=== PATIENT | male | born 1945 | race Caucasian/White ===

== ENCOUNTER 2017-05-20 01:46 | Day surgery (SDC) | payer MEDICARE, OTHER ==
[~2017-05-20] VITALS: Ht 175.3 cm; Wt 70.5 kg
[2017-05-20] VITALS (10 sets, daily range): BP systolic 147–182; BP diastolic 71–104; PULSE 83–106; RESP 16–21; O2SAT 93–96
[~2017-05-20 01:46] MED LIST: ASPI-628 PO; FLUT12AE10 IH; HYDR25TA4 PO; LIP40 PO
--- NOTE | 2017-05-20 11:08 | NUR ---
MIKHAIL ADMIT 72 YR OLD MALE ADMITTED TO [facility] FOR ANGIO TODAY AT 1000. IVS STARTED, LABS SENT, AND QUESTIONS ANSWERED. DR VILLEGAS NOTIFIED OF PT'S ADMIT.
[2017-05-20 11:16] LABS: BASOPHILS % (AUTO) 0.7 % (0-3); EOSINOPHILS % (AUTO) 0.7 % (0-5); MONOCYTES % (AUTO) 12.3 % (4-12); Mean Corpuscular Hemoglobin 37.4 pg (27.0-35.0); NEUTROPHILS % (AUTO) 65.8 % (40-74); Platelet Count 144 bil/L (150-400)
[2017-05-20 11:19] LABS: INR 1.04 ratio
[2017-05-20] MEDS ORDERED: LORazepam 1 mg Tablet ONE (11:32)
[2017-05-20] MEDS ORDERED: Heparin 10,000 Unit/1,000 mL NS Premix IV ONE (13:45)
[2017-05-20] MEDS ORDERED: fentaNYL-PF 50 mCg/mL 2 mL Inj ONE ×2 (13:46→14:08)
[2017-05-20] MEDS ORDERED: Heparin 1,000 Unit/mL 10 mL Inj ONE (13:46)
--- NOTE | 2017-05-20 16:28 | DRSVH ---
PROCEDURE: ANGIO,EXTREM BILATERAL (PNL) INDICATIONS: Bilateral claudication COMPARISON: None. Technique: 1. Conscious sedation for 60 minutes. 2. Retrograde access of the right common femoral artery. 3. Pelvic arteriogram. 4. Angioplasty of a high-grade stenosis in the right internal iliac artery. 4. Angioplasty of a moderate grade stenosis in the left external iliac artery. 5. Angioplasty of a stenosis in the proximal left SFA. 6. Completion angiogram. The indications, alternatives, benefits, risks, and complications of the procedure were explained to the patient.. Informed written consent was obtained and placed in the chart. The patient was john t to the angiography suite, and conscious sedation was administered intravenously by [facility] staff, while continuous cardiorespiratory monitoring was performed. Maximum sterile barrier technique was employed per standard protocol, including hand hygiene, cap, ma sk, sterile gown and gloves, and 2% chlorhexidine. One percent lidocaine was used at the skin over th e area of interest. In a retrograde fashion using a micropuncture kit the right common femoral artery was accessed. An 035 wire was advanced into the aorta and micropuncture sheath was exchanged for a 4 Dutch sheath. A pelvic arteriogram was performed through a pigtail catheter. The 4 Dutch sheath wa s then exchanged for a short 6 Dutch sheath. Next, left angioplasty was performed for a focal high-g rade stenosis within the right common iliac artery with a 7 mm x 40 mm high-pressure balloon. Complet ion arteriogram was performed. The left common iliac artery was then accessed with a sos catheter and a Glidewire. The Glidewire was advanced into the left SFA. A quick cross catheter was advanced over the Glidewire. The Glidewire was exchanged for a glide advantage wire. The quick cross catheter the 4 Dutch sheath were removed, and a 6 Dutch Keshav catheter was advanced over the wire to the level of the common iliac artery. Balloon angioplasty was performed with a 7 mm x 40 mm high-pressure balloon for a focal stenosis in the left external iliac artery just distal to the iliac stent. Completion ar teriogram was performed. Balloon angioplasty was then performed for a focal stenosis at the origin of the left SFA using a 5 mm x 40 mm high-pressure balloon. Completion arteriogram was performed. FINDINGS: A focal high-grade stenosis is present within the distal right common iliac artery. There is resolution of the stenosis after balloon angioplasty. A focal moderate high-grade stenosis is pres ent within the left external iliac artery just distal to the left iliac stent. There is resolution of the stenosis after balloon angioplasty. A a focal moderate grade stenosis is present within the orig in of the left SFA. There is mild residual stenosis within the SFA after balloon angioplasty. IMPRESSION: 1. Balloon angioplasty of a focal high-grade stenosis within the right common iliac artery. 2. Balloon angioplasty of a focal moderate grade stenosis within the left external iliac artery. 3. Linear angioplasty of a moderate grade stenosis within the origin of the left SFA. Dictated by: Arabella Del Toro M.D. on 05/20/2017 at 16:17 Approved by: Arabella Del Toro M.D. on 05/20/2017 at 16:27
--- NOTE | 2017-05-20 17:57 | NUR ---
MIKHAIL DISCHARGE PT COMPLETED BEDREST AND AMBULATED IN [place] AND USED BATHROOM. RIGHT GROIN REMAINED SOFT, NON TENDER, NO BLEEDING OR HEMATOMA NOTED. DISCHARGE INSTRUCTIONS INCLUDING F/U APPT AND POST SEDATION AND POST ANGIOGRAM INSTRUCTIONS WERE REVIEWED AND PT VERBALIZED UNDERSTANDING. IVS AND RASCON CATHETER WERE DISCONTINUED. URINE HAS SOME BLOOD IN IT (CRANBERRY COLORED) AND DR VILLEGAS WAS NOTIFIED. NO NEW ORDERS, PT IS AWARE TO SEEK MEDICAL ATTENTION FOR CONTINUED BLOODY URINE. PT WAS DISCHARGED AT 1745 WITH FAMILY IN STABLE CONDITION.
== END 2017-05-20 23:59 | disposition home or self-care (01) ==
LOC: SOUO 01:46
PROVIDERS: ATTEND Radiology Vascular & Interventional Radiology
DX: I70.213 Atherosclerosis of native arteries of extremities with intermittent claudication, bilateral legs (principal); J44.9 Chronic obstructive pulmonary disease, unspecified; Z87.891 Personal history of nicotine dependence
CPT/HCPCS: 36415; 37220; 37224; 75716; 80048; 85025; 85610; 93005; 99152; 99153; C1725; C1729; C1760; C1769; J1644; J2250; J3010; Q9967

== ENCOUNTER 2017-05-27 01:59 | Day surgery (SDC) | payer MEDICARE, OTHER ==
--- NOTE | 2017-05-27 12:08 | DRSVH ---
PROCEDURE: RADIOLOGIST CONSULT FOLLOW UP COMPARISON: [facility], XA, ANGIO,EXTREM BILATERAL (PNL), 05/20/2017, 14:04. ID & CHIEF COMPLAINT: The patient presents to followup after bilateral lower extremity angioplasty on 05/20/17. HISTORY OF PRESENT ILLNESS: Mr. Catalan underwent a right internal iliac angioplasty of an intrastent stenosis, a left external iliac artery angioplasty, and a left superficial femoral artery angioplast y. He states that the heaviness and pain he felt that his bilateral thighs after walking approximatel y 1/2 block has resolved. He states he is now able to take long walks through this field without pain or the need to rest to wait for the weakness in his muscles to subside. He denies any bruising at th e right lateral access site or any other findings to suggest retroperitoneal hematoma after angioplas ty. SOCIAL HISTORY: Today we discussed the patient's ongoing tobacco use. Specifically, we discussed that his sym vascular symptoms are likely directly related to his continued cigarette smoking. We discuss ed the need to continue to attempt to quit smoking. ALLERGIES: Penicillin, pineapple MEDICATIONS: Medication list on file (in PACS documents) and reviewed. FOCUSED PHYSICAL EXAM: Vital signs: Blood pressure: 173/91, heart rate: 78, respiratory rate: 18, oxygen saturation 98% on r oom air, and temperature: 36.8 C Pulses: Right side: Triphasic dorsalis pedis and tibialis posterior Left side: Triphasic dorsalis pedis and tibialis posterior IMAGING: The final angiogram after bilateral angioplasty demonstrates markedly improved patency of th e right common iliac, the left external iliac, and the left superficial femoral artery. IMPRESSION: In summary, Mr. Catalan is a pleasant 72-year-old gentleman with excellent results after recent bilat eral angioplasty of the lower extremities. His claudications symptoms have resolved. Today we discuss ed that if his symptoms recur (as is the natural history of peripheral vascular disease), he should c ontact Dr. Magaña or the interventional radiologists at [facility] to discuss further evaluati on and potential repeat angioplasty. Additionally, we discussed the urgent need to stop smoking as co ntinued smoking will accelerate his peripheral vascular disease. Dictated by: Arabella Del Toro M.D. on 05/27/2017 at 11:59 Approved by: Arabella Del Toro M.D. on 05/27/2017 at 12:07
== END 2017-05-27 23:59 | disposition home or self-care (01) ==
LOC: SOUO 01:59
PROVIDERS: ATTEND Radiology Vascular & Interventional Radiology
DX: Z09 Encounter for follow-up examination after completed treatment for conditions other than malignant neoplasm (principal); Z98.62 Peripheral vascular angioplasty status